=== PATIENT | female | born 1975 | race Caucasian/White ===

== ENCOUNTER 2018-07-05 21:06 | Observation (INO) | payer MEDICAID ==
[2018-07-05] MEDS ORDERED: NS 1,000 ML IV ONE (21:31)
[2018-07-05] MEDS ORDERED: KETAMINE 200 MG/20 ML VIAL IVP ONE (21:38)
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
[2018-07-05 22:07] LABS: PLATELET COUNT 187 10^3/uL (150-400)
[2018-07-05] MEDS ORDERED: HYDROmorphONE/DILAUDID 1 MG/ML INJ IVP ONE (22:34)
[2018-07-05] MEDS ORDERED: ONDANSETRON 4 MG/2 ML VIAL IVP ONE (22:34)
[2018-07-06] MEDS ORDERED: IOPAMIDOL (ISOVUE-300) 100 ML BTL ONE (00:03)
[2018-07-06] MEDS ORDERED: LORazepam 2 MG/ML INJ IVP PRN (00:47)
[2018-07-06] MEDS ORDERED: ONDANSETRON 4 MG/2 ML VIAL IVP PRN (00:47)
[2018-07-06] MEDS ORDERED: PROMETHAZINE HCL 25 MG/ML INJ IVP PRN (00:47)
[2018-07-06] MEDS ORDERED: ACETAMINOPHEN 650 MG SUPP PR PRN (00:47)
[2018-07-06] MEDS ORDERED: LACTULOSE 20 GM/30 ML UDCUP PO PRN (00:53)
[2018-07-06] MEDS ORDERED: MAGNESIUM HYDROXIDE 30 ML UDCUP PO PRN (00:53)
[2018-07-06] MEDS ORDERED: POLYETHYLENE GLYCOL 3350 17 GM PKT PO PRN (00:53)
[2018-07-06] MEDS ORDERED: BISACODYL 10 MG SUPP PR PRN (00:53)
[2018-07-06] MEDS ORDERED: BISACODYL 10 MG SUPP PR ONE (01:18)
[2018-07-06] MEDS ORDERED: NICOTINE 21 MG/24 HR PATCH TD ONE (01:19)
[2018-07-06] MEDS: NS 1,000 ML IV SCH ×2 (01:48→23:07)
[2018-07-06] MEDS: KETOROLAC 15 MG/1 ML SDV IVP PRN ×2 (02:35→08:38)
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
[2018-07-06 05:43] LABS: INR 1.15 (0.83-1.16); PROTIME(PATIENT) 14.9 SEC (12.0-15.0)
[2018-07-06 07:32] LABS: PLATELET COUNT 141 10^3/uL (150-400)
--- NOTE | 2018-07-06 09:06 | GCON ---
GENERAL SURGERY CONSULTATION DATE OF CONSULTATION: 07/06/2018 SOURCE: History obtained from patient and chart review. HISTORY OF PRESENT ILLNESS: The patient is a 42-year-old female with a history of alcohol abuse with chronic alcoholic pancreatitis, with history of pseudocyst, and a reported pancreatic pleural fistul a, who states she has been sober for the last 6 months, who was admitted to the hospital through the emergency department with complaints of upper but upper abdominal pain associated with nausea and vom iting. Prior to her admission here, she was evaluated at the [facility]. Per report, she received Toradol, which she said did not really improve her pain, as well as some Xanax. Upon arrival to the ED, she had an abdominal ultrasound, which showed no cholelithiasis with possible hepatic steatosis. A CT scan revealed some prominent fecal material in the colon with some dilated small bowel, thought to be related to her constipation. Also showed sequela of chronic pancreatitis. Please see report for full details. Since admission, she has had a suppository and reports having many large formed stools overnight. He r nausea and vomiting have resolved. She still feels some abdominal pain and reports wanting to "cur l into a ball." Of note, the patient says she has chronic pain from her chronic pancreatitis and is interested in fin ding a PCP and Pain Management doctor. She says she takes ibuprofen and aspirin, and is worried abou t forming an ulcer. PAST MEDICAL HISTORY: History of alcohol abuse with chronic pancreatitis as outlined above. Patient that she was in and out of the hospital for about 5 years while living in [place] for this. PAST SURGICAL HISTORY: Denies. MEDICATIONS: Aspirin, Tylenol, ibuprofen. ALLERGIES: Morphine causes hives. SOCIAL HISTORY: The patient says she is originally from [place]. She has lived in [place] for t he last 11 years. She said she was visiting friend and just got stuck there. She has been back in [facility] for about 2 weeks. She reports being sober from alcohol for the last 6 months. She does smok e cigarettes. She denies opioid use at home. FAMILY HISTORY: Noncontributory. REVIEW OF SYSTEMS: Negative aside from that in the HPI. PHYSICAL EXAMINATION: GENERAL: Reveals a 42-year-old female, alert and oriented x3, and in no acute distress. HEENT: Normocephalic, atraumatic. Sclerae are anicteric. Mucous membranes are moist. CHEST: Clear to auscultation bilaterally. CARDIAC: Regular rate and rhythm. ABDOMEN: Soft. Mild diffuse tenderness. No rebound or guarding. No masses. EXTREMITIES: Warm and dry without edema. PSYCH: Normal mood and affect. IMPRESSION: This is a 42-year-old female with abdominal pain, nausea, and vomiting, likely secondary to severe constipation, less likely small bowel obstruction. PLAN: I agree with cathartics. The patient seemed to have good result last night reporting many lar ge formed bowel movements. We will get an x-ray to determine current stool burden. Would plan to co ntinue n.p.o. until x-ray obtained. Also, I cautioned her against narcotic pain medicines for her pancreatitis pain. This is not a great idea with her history of addiction, and could lead to more constipation problems. /[id number]/MODL
[2018-07-06] MEDS: NICOTINE 21 MG/24 HR PATCH TD SCH (10:44)
[2018-07-06] MEDS: SENNOSIDES/DOCUSATE SODIUM TAB PO SCH ×2 (10:58→19:45)
--- NOTE | 2018-07-06 16:52 | ASMTCMCOM ---
CM Note CM Note Notes: Went to see pt earlier in the day but she was sleeping. Was able to speak with pt now, she states she left [place] and has been staying at the [facility] since 06/15 but soon she will need to go to a different [facility]. Pt states she has some "legal issues" to deal with before she is able to get housing. Pt's aunt is involved and has been calling, pt has given permission to speak with her aunt regarding her care. CM asked if she can stay with her aunt, pt states she can only stay with her for about 3 days. Pt is having difficulty with pain management, CM will research pain clinic/mangagement places. Discussed with pt getting into the [facility] system for ongoing medical care and support, pt is agreeable. DC Plan: Indepedent Date Signed: 07/06/2018 04:51 PM Electronically Signed By:Subha Levin RN
--- NOTE | 2018-07-06 17:17 | HOSPPROG ---
Hospitalist Progress Note Assessment/Plan: Evening hospitalist rounds on admission day I met with the patient during my 4th visit with her this afternoon. During my 1st 3 visits with her this afternoon she was sound asleep and snoring, and did not respond when I spoke her name at a reasonably loud volume. I had left her to get rest to catch up on that. On the 4th visit the patient is wide awake now. She is stating that she has ongoing upper abdominal pain and that she is currently not nauseous now and has been sipping on some soda. She does have some thirst and only a mild appetite. She is still saying that she needs pain medication for her pain. She denies any fever symptoms. She has now had a very large number of large formed bowel movements today, without blood. She had her abdomen feels much less distended though she does not admit to any improvement in her discomfort related to this she does seem satisfied to have this distension resolved. Currently on examination she has no fever and stable vital signs. She is more relaxed on my assessment and she was described to me by the ER physician or Dr. Zaragoza from this morning. Her skin is warm and dry with no jaundice or rash, respirations not labored, abdomen soft notably less distended, and there are no objective signs of tenderness on examination. I did not ask if she was tender but she did not volunteer any subjective tenderness. There is no rebound, no mass and at this time no palpable stool. Normal bowel sounds are present Of mention at this time the patient has been telling the nurses that the Ativan ordered here is not helping her pain and she wants the Xanax that she usually takes for pain and has been prescribed by previous physician. When I asked her about this the Xanax was prescribed for her last night at [facility] on her 1st ever visit there. Her understanding was that this was a pain medicine. When I discussed with her that this was not a pain medicine but an anxiety reducing medication, she was fairly surprised. She did not feel during my discussion with her that she needed medicine for anxiety per se. Notably however after this discussion that I had during this visit with her I am getting a call from the nurses that the patient does want her Xanax to be prescribed here. I had a long discussion with the patient, and with her registered nurses Blanca and Lisa present, about her pain, and how it has been managed over time. She does tell me that she has daily around the clock pain in her upper abdomen that is been present for years. She says that she had been self medicating with alcohol for quite some time and does admit that she knows that this was the cause of her pancreatitis to begin with which is the cause of her pain. She does admit also that she had used in the past a lot of addictive drugs including injected drugs but had stopped using those perhaps 10 years ago, and stopped using alcohol 6 months ago. When I ask her about the time course of the pain over the last 6 months she states that until several days ago, the pain is quite constant and severe. When I ask about how that was managed she says that she has not been taking any prescribed medications. She states that she went to see 1 physician who talked about possibly prescribing low-dose narcotic for her but that she never went back to that physician. She says that she has been using marijuana with some regularity, as well as using cocaine and other street drugs but no narcotics over the last several months. Notably she says that she has been sober for the last 6 months since she has stopped alcohol , but does not seem to recognize that we would not call her having been sober since she really has replaced the alcohol with street drugs. The patient tells me that there was a picnic at the [facility] where she has been staying around 5 days ago and that there was quite a bit of fatty food and that this is she thinks what started the onset of worsening pain over the last 5 days. There has been some vomiting as well. She again denies any recent use of alcohol. The patient has been staying in continues to say now that the only medicine that will work for her is narcotics. There is an aunt of the patient whom I have not met yet, who has been at the patient's bedside for a portion of the earlier part of the day. It is reported to me by the nurses that the aunt is fairly demanding insisting to the nurses that the patient be given narcotic and that the patient can't leave the hospital until she has her pain down to a level 3 or 4. I reviewed in detail with the patient that as she has chronic pain that may never resolve and that certainly will not improve much or quickly from what she has been experiencing for the past 6 months to several years (and which she describes as severe daily pain). I also described that this type of pain is really not amenable to chronic narcotic therapy for any kind of reasonable control. We talked about the body's adjustment to narcotics that the narcotics continually become less and less effective, and are routine experience the patient with chronic pain continue to have there chronic pain when they are taking narcotic medicines. There are also issues related to these medicines causing nausea and constipation which would aggravate her symptoms. She has already come here with significant constipation even though she reportedly is not taking any narcotics at home so this is extremely likely to be a major issue for her. Additionally we reviewed that as she does not have any significant finances and states she is unable to afford going to doctor visits, it will be very hard for her to maintain pain for prescription narcotics and to maintain the routine doctor's visits that her required for ongoing narcotic medication. We reviewed that there is a very large number of patients who end up using street narcotics because they cannot afford to get prescribed narcotics. Additionally she has shown that she is either not financially able or otherwise motivated or able to get herself to go in to see a doctor as she is described from her experience in [place]. But most importantly in this patient who has been an alcoholic, who has been addicted to street drugs, and who states that she has been using cocaine and marijuana recently to self medicate, the likelihood of her ending up with uncontrolled an inappropriate narcotic use especially with street drugs is quite high. I cannot at this time make a recommendation that we would send her out of the hospital with narcotic medicines to treat her chronic pain. We can give her some medicine over period of time that would take to resolve from the acute worsening of pain that she has experienced in the last several days. However likelihood that she would tolerate removing those narcotics after a couple of days or so is very low. I discussed with her that I do not think there medications that are likely to make any real improvement for her overall. She will more likely benefit from very careful attention to her diet, physical activity on a regular basis, and considering therapies such as acupuncture massage or other similar approaches. She should probably be involved in some type of counseling as well if possible At this time I will prescribe some Protonix and tramadol and follow her symptoms carefully with her. Again her nurses were present with me for this entire conversation. Greater than 50 min was spent at the bedside with the patient by me today in addition to the time spent earlier by Dr. Zaragoza during her admission activities Objective: Vital Signs Temp Pulse Resp BP Pulse Ox 37.0 C 76 16 123/86 H 98 07/06/18 16:00 07/06/18 16:00 07/06/18 16:00 07/06/18 16:00 07/06/18 16:00 Laboratory Results 07/06/18 07:25 07/06/18 04:29 07/05/18 07/06/18 07/07/18 06:59 06:59 06:59 Intake Total 1000 Balance 1000 PT 14.9 SEC (12.0-15.0) 07/06/18 05:00 INR 1.15 (0.83-1.16) 07/06/18 05:00 ICD10 Worksheet Patient Problems: Problems Problem Status Onset History of pancreatitis Acute Small bowel obstruction Acute
[2018-07-06] MEDS: traMADol 50 MG TAB PO PRN ×2 (17:46→23:38)
[2018-07-06] MEDS: PANTOPRAZOLE SODIUM 40 MG TAB PO SCH (17:47)
[2018-07-06] MEDS: ALPRAZolam 1 MG TAB PO PRN (19:45)
[2018-07-07] MEDS: ALPRAZolam 1 MG TAB PO PRN (03:40)
[2018-07-07] MEDS: traMADol 50 MG TAB PO PRN ×2 (05:38→14:11)
[2018-07-07] MEDS: PANTOPRAZOLE SODIUM 40 MG TAB PO SCH (10:25)
[2018-07-07] MEDS: SENNOSIDES/DOCUSATE SODIUM TAB PO SCH (10:25)
[2018-07-07] MEDS: NICOTINE 21 MG/24 HR PATCH TD SCH (10:26)
[2018-07-07 15:26] VITALS: BP 123/82
--- NOTE | 2018-07-07 16:09 | ASMTCMCOM ---
CM Note CM Note Notes: Met with pt, gave number for pain clinic and scheduled an appt at the [facility] next week, documented in the discharge instructions. Pt will dc independent to the [facility], CM available for any changes. DC Plan: Independent Date Signed: 07/07/2018 03:39 PM Electronically Signed By:Subha Levin RN
--- NOTE | 2018-07-07 18:30 | SOAPPROG ---
SOAP Progress Note Assessment/Plan: Assessment: DOING MUCH BETTER TODAY/MULTIPLE SUCCESSFUL BOWEL MOVEMENTS/AFEBRILE ABDOMEN SOFT NONDISTENDED WITH BOWEL SOUNDS CHEST CLEAR COR REGULAR RHYTHM HEENT NONICTERIC IMPRESSION IMPROVED/ULTRAM SEEMS TO BE WORKING WELL Plan: DISCHARGE PROBABLY TODAY AND FOLLOW UP WITH THE PAIN CLINIC FOR HER CHRONIC PANCREATITIS 07/07/18 18:29 Objective: Vital Signs Temp Pulse Resp BP Pulse Ox 37.1 C 81 16 123/82 H 96 07/07/18 15:24 07/07/18 15:24 07/07/18 15:24 07/07/18 15:24 07/07/18 15:24 Laboratory Results 07/06/18 07:25 07/06/18 04:29 07/06/18 07/07/18 07/08/18 05:59 05:59 05:59 Intake Total 1000 2150 Balance 1000 2150 PT 14.9 SEC (12.0-15.0) 07/06/18 05:00 INR 1.15 (0.83-1.16) 07/06/18 05:00 ICD10 Worksheet Patient Problems: Problems Problem Status Onset History of pancreatitis Acute Small bowel obstruction Acute
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
== END 2018-07-07 18:56 | disposition home or self-care (01) ==
LOC: F3E 07-06 01:23
PROVIDERS: ADMIT Family Medicine; ATTEND Internal Medicine
DX: K85.90 Acute pancreatitis without necrosis or infection, unspecified (principal); K86.1 Other chronic pancreatitis; E86.0 Dehydration; R11.2 Nausea with vomiting, unspecified; K59.00 Constipation, unspecified; F43.12 Post-traumatic stress disorder, chronic; F12.90 Cannabis use, unspecified, uncomplicated; F17.210 Nicotine dependence, cigarettes, uncomplicated; F10.21 Alcohol dependence, in remission; F11.21 Opioid dependence, in remission; F15.21 Other stimulant dependence, in remission; Z91.410 Personal history of adult physical and sexual abuse
CPT/HCPCS: 74019; 74177; 76705; 96361; 96374; 96375; 96376; 99285; G0378; J1170; J1885; J2060; J2405; Q9967